=== PATIENT | male | born 1995 | race Two or more races ===

== ENCOUNTER 2017-02-03 18:24 | Emergency (ER) | payer OTHER ==
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
== END 2017-02-03 22:50 | disposition home or self-care (01) ==
LOC: CFTX 18:24
DX: S16.1XXA Strain of muscle, fascia and tendon at neck level, initial encounter (principal); S39.012A Strain of muscle, fascia and tendon of lower back, initial encounter; S29.012A Strain of muscle and tendon of back wall of thorax, initial encounter; S73.102A Unspecified sprain of left hip, initial encounter; S73.101A Unspecified sprain of right hip, initial encounter; S80.02XA Contusion of left knee, initial encounter; S80.01XA Contusion of right knee, initial encounter; S20.219A Contusion of unspecified front wall of thorax, initial encounter; V49.40XA Driver injured in collision with unspecified motor vehicles in traffic accident, initial encounter; Y92.410 Unspecified street and highway as the place of occurrence of the external cause
CPT/HCPCS: 71020; 72040; 72072; 72100; 72125; 73080; 73502; 73552; 73560; 99284